=== PATIENT | female | born 1990 | race Caucasian/White ===

== ENCOUNTER 2022-02-13 08:16 | Emergency (ER) | payer MEDICAID ==
[~2022-02-13] VITALS: Ht 167.6 cm; Wt 72.7 kg
[2022-02-13 08:33] VITALS: BP 101/68
[2022-02-13] MEDS ORDERED: LIDOcaine 1% W/epiNEPHrine 1:100,000 20ml vial SQ ONE (10:40)
[2022-02-13] MEDS ORDERED: LIDOCAINE 1%/EPI 1:100,000 inj. 10 ML multi-dose vial SQ ONE (10:40)
[2022-02-13] MEDS ORDERED: sulfamethoxazole/trimethoprim DS (800/160mg) tablet PO ONE (11:25)
[2022-02-13] MEDS ORDERED: SULF1TAB49 PO (11:40)
== END 2022-02-13 11:58 | disposition home or self-care (01) ==
LOC: ER 08:17
DX: L02.412 Cutaneous abscess of left axilla (principal); Z87.891 Personal history of nicotine dependence
CPT/HCPCS: 10060; 99283

== ENCOUNTER 2023-01-15 10:55 | Emergency (ER) | payer MEDICAID, OTHER ==
[~2023-01-15] VITALS: Ht 167.6 cm; Wt 72.8 kg
[2023-01-15] MEDS ORDERED: HYDR-3686 PO (12:00)
[2023-01-15] MEDS ORDERED: SULF1TAB49 PO (12:00)
[2023-01-15] MEDS ORDERED: ARIP20TA4 PO (12:00)
[2023-01-15] MEDS ORDERED: CEPH-585 PO (12:00)
[2023-01-15 12:33] VITALS: BP 154/87; PULSE 84; RESP 18; TEMP 97.7; O2SAT 98
== END 2023-01-15 12:34 | disposition home or self-care (01) ==
LOC: ER 10:55
DX: L03.113 Cellulitis of right upper limb (principal); M79.89 Other specified soft tissue disorders
CPT/HCPCS: 99283

== ENCOUNTER 2023-03-31 12:47 | Emergency (ER) | payer OTHER ==
[~2023-03-31] VITALS: Ht 168.9 cm; Wt 84.4 kg
[~2023-03-31 12:47] MED LIST: ARIP20TA4 PO; CEPH-585 PO
[2023-03-31 12:51] VITALS: BP 121/81; PULSE 92; RESP 16; TEMP 98.2; O2SAT 100
[2023-03-31] MEDS ORDERED: CEPH-585 PO ×2 (14:14→15:53)
[2023-03-31] MEDS ORDERED: SULF1TAB49 PO ×2 (14:14→15:53)
[2023-04-01] MEDS ORDERED: CLIN300C54 PO (17:40)
== END 2023-03-31 15:26 | disposition home or self-care (01) ==
LOC: ER 12:47
DX: M79.641 Pain in right hand (principal); F15.90 Other stimulant use, unspecified, uncomplicated; F19.90 Other psychoactive substance use, unspecified, uncomplicated; Z79.2 Long term (current) use of antibiotics; Z79.899 Other long term (current) drug therapy
CPT/HCPCS: 99283

== ENCOUNTER 2023-04-01 16:40 | Emergency (ER) | payer OTHER ==
[~2023-04-01] VITALS: Ht 167.6 cm; Wt 77.3 kg
[~2023-04-01 16:40] MED LIST changes: +SULF1TAB49 PO
[2023-04-01 17:13] VITALS: BP 105/70; PULSE 100; RESP 18; TEMP 97.8; O2SAT 100
[2023-04-01] MEDS ORDERED: CLIN300C54 PO (17:40)
== END 2023-04-01 17:48 | disposition home or self-care (01) ==
LOC: ER 16:41
DX: L03.113 Cellulitis of right upper limb (principal); F15.90 Other stimulant use, unspecified, uncomplicated; Z79.899 Other long term (current) drug therapy; Z79.2 Long term (current) use of antibiotics
CPT/HCPCS: 99283